=== PATIENT | male | born 1995 | race Caucasian/White ===

== ENCOUNTER 2017-06-10 00:22 | Emergency (ER) | payer BC, OTHER ==
[2017-06-10 00:32] VITALS: BP 110/52
== END 2017-06-10 03:56 | disposition left against medical advice (07) ==
LOC: ED 00:22
DX: R19.8 Other specified symptoms and signs involving the digestive system and abdomen (principal); Z53.21 Procedure and treatment not carried out due to patient leaving prior to being seen by health care provider